=== PATIENT | female | born 1965 | race Caucasian/White ===

== ENCOUNTER 2017-07-09 10:20 | Day surgery (SDC) | payer OTHER ==
[~2017-07-09] VITALS: Ht 160 cm; Wt 72.3 kg
[~2017-07-09 10:20] MED LIST: HORMONE REPLACEMENT PO; OXYBUTYNIN PO; PROTONIX PO; ZOLOFT PO
[2017-07-09 11:00] VITALS: Ht 160 cm; Wt 72.3 kg
[2017-07-09] MEDS ORDERED: ATOR10TA65 PO (11:08)
[2017-07-09] MEDS ORDERED: SERT100T PO (11:08)
[2017-07-09] MEDS ORDERED: DET1 PO (11:08)
[2017-07-09] MEDS ORDERED: ESTR1TAB13 PO (11:08)
[2017-07-09] MEDS ORDERED: OMEP40CA6 PO (11:08)
[2017-07-09] MEDS ORDERED: SERT25TA PO (11:08)
[2017-07-09] MEDS ORDERED: PROPOFOL 60 ML ONE (12:52)
[2017-07-09] MEDS ORDERED: LIDOCAINE 2% (SDV) 5 ML INJ ONE (12:52)
[2017-07-09 12:59] VITALS: BP 134/63; PULSE 77; RESP 18
--- NOTE | 2017-07-09 13:35 | OPPN ---
Date/Time of Note Date/Time of Note DATE: 07/09/17 TIME: 13:33 Proc Note GI Procedure Date 07/09/17 Pre-procedure Diagnosis Abdominal pain pain and Crohn's disease Post-procedure Diagnosis Colon polyp Gastritis Procedure Performed: Endoscopy, Colonoscopy Surgeon see signature line Filer And Sander none Anesthesia Type: MAC Tourniquet Time none EBL none Transfusion required none Grafts/Implants none Tubes/Drains none Complication(s) none Pt Condition post procedure: stable Disposition: home Indications: screening/surveillance Operative\Procedure Findings 1. EGD with biopsy 2. Colonoscopy with biopsy Procedure Description See dictation report job #[id number] SUYAPA GIRON MD Jul 09, 2017 13:35
[2017-07-09] MEDS ORDERED: ONDANSETRON 4 MG INJ ONE (13:49)
[2017-07-09 14:05] VITALS: BP 107/58; RESP 14
--- NOTE | 2017-07-09 14:07 | GILP ---
DATE OF PROCEDURE: 07/09/2017 INDICATIONS FOR PROCEDURE: A 52-year-old who female undergoing this procedure for colon cancer screening. She has Crohn's disease for the last 20 years, strong family history of colon cancer, polyps and upper endoscopy for history for left upper quadrant pain. The risks of the procedure, related and unrelated complications, anesthetic risks, alternatives were discussed and informed consent was obtained. DESCRIPTION OF PROCEDURE: The patient was brought to the GI lab, sedated by Dr. Catalan. After optimal sedation, scope was passed with much ease into the esophagus, which was grossly within normal limits. Z-line was at 40 cm. Stomach mucosa revealed erosive gastritis. Multiple biopsies obtained randomly to rule out H. pylori infection. Duodenum, 1st and 2nd part was within normal limits. Retroversion in the stomach also was normal. Scope was straightened out and removed with good patient tolerance. FINDINGS: 1. Erosive gastritis. 2. Normal Z-line at 40 cm. 3. Normal esophagus. 4. Normal duodenum including ampulla. PLAN: Review histopathology. DESCRIPTION OF PROCEDURE: Patient was turned around. Scope was passed with much ease into the rectum, advanced to sigmoid, descending transverse colon all the way into the cecum. Terminal appendiceal orifice identified. IC valve was tight, could not enter into terminal ileum. The rest of the colon was normal. Polyp identified at 20 cm successfully removed by cold biopsy forceps. The preparation was adequate. IMPRESSION: 1. Normal finding all the way into cecum. 2. Polyp at 20 cm, diminutive successfully removed. 3. Negative otherwise, all the way into cecum. 4. Preparation was adequate. PLAN: Stay on high-fiber diet. The patient is asymptomatic and given the history of Crohn disease, she will need a capsule endoscopy. Dictated By: Andrew Mars MD /ralph/ /Document#: [id number] CC: Kaiden Falcon MD;*[facility]*
== END 2017-07-09 15:30 | disposition home or self-care (01) ==
LOC: GIL 10:20
PROVIDERS: ATTEND Internal Medicine Gastroenterology
DX: Z12.11 Encounter for screening for malignant neoplasm of colon (principal); K63.5 Polyp of colon; K29.70 Gastritis, unspecified, without bleeding; E78.5 Hyperlipidemia, unspecified; I10 Essential (primary) hypertension; Z88.8 Allergy status to other drugs, medicaments and biological substances
CPT/HCPCS: 43239; 45380; 88305; 88312; J2405; Z7610